=== PATIENT | male | born 1990 | race Caucasian/White ===

== ENCOUNTER 2017-08-29 18:48 | Emergency (ER) | payer MEDICAID ==
[2017-08-29] MEDS: FAMOTIDINE 20 MG INJ IV (21:28)
[2017-08-29] MEDS: ONDANSETRON 4 MG INJ IV (21:28)
[2017-08-29] MEDS: morphine 4 MG/ML VIAL IV (21:28)
[2017-08-29] MEDS: SOD CHLORIDE 0.9% 1,000 ML IV (21:29)
[2017-08-29 21:39] LABS: ADD MAN DIFF? NO
[2017-08-29 21:41] LABS: WHITE BLOOD COUNT 6.7 10^3/ul (4.8-10.8)
[2017-08-29 21:41] LABS: BASOPHILS % 0.6 % (0.0-2.0); EOSINOPHILS # 0.1 10^3/ul (0.0-0.5); EOSINOPHILS % 0.9 % (0.0-7.0); HEMATOCRIT 41.3 % (42.0-52.0); HEMOGLOBIN 14.8 g/dl (14.0-18.0); LYMPHOCYTES # 3.1 10^3/ul (0.8-2.9); LYMPHOCYTES % 45.6 % (15.0-51.0); MEAN CORPUSCULAR HEMOGLOBIN 30.3 pg (29.0-33.0); MEAN CORPUSCULAR HGB CONC 35.8 g/dl (32.0-37.0); MEAN CORPUSCULAR VOLUME 84.6 fl (82.0-101.0); MONOCYTE # 0.5 10^3/ul (0.3-0.9); MONOCYTES % 7.3 % (0.0-11.0); NEUTROPHIL # 3.1 10^3/ul (1.6-7.5); NEUTROPHILS % 45.5 % (39.0-77.0); PLATELET COUNT 220 10^3/UL (140-415); RED BLOOD COUNT 4.88 10^6/ul (4.70-6.10); RED CELL DISTRIBUTION WIDTH 11.9 % (11.5-14.5)
[2017-08-29 21:59] LABS: ALANINE AMINOTRANSFERASE 25 IU/L (13-69); ALBUMIN 5.2 g/dl (3.3-4.9); ALBUMIN/GLOBULIN RATIO 1.67; ALKALINE PHOSPHATASE 68 IU/L (42-121); ANION GAP 19 (8-16); ASPARTATE AMINO TRANSFERASE 25 IU/L (15-46); BILIRUBIN,INDIRECT 0.1 mg/dl (0-1.1); BILIRUBIN,TOTAL 0.1 mg/dl (0.2-1.3); BLOOD UREA NITROGEN 9 mg/dl (7-20); CALCIUM 9.8 mg/dl (8.4-10.2); CARBON DIOXIDE 29 mmol/L (21-31); CHLORIDE 102 mmol/L (97-110); GLUCOSE 95 mg/dl (70-220); LIPASE 64 U/L (23-300); POTASSIUM 3.7 mmol/L (3.5-5.1); SODIUM 146 mmol/L (135-144); TOTAL PROTEIN 8.3 g/dl (6.1-8.1)
[2017-08-29 22:21] LABS: TROPONIN-I < 0.012 ng/ml (0.00-0.12)
[2017-08-30 00:03] LABS: UR RBC 1 /HPF (0-5); UR WBC 0 /HPF (0-5)
[2017-08-30 00:07] LABS: ADD UMIC NO; UR ASCORBIC ACID NEGATIVE (NEGATIVE); UR BILIRUBIN (Dip) NEGATIVE (NEGATIVE); UR BLOOD (Dip) NEGATIVE (NEGATIVE); UR CLARITY CLEAR (CLEAR); UR COLOR STRAW (YELLOW); UR GLUCOSE (Dip) NEGATIVE (NEGATIVE); UR KETONES (Dip) NEGATIVE (NEGATIVE); UR LEUKOCYTE ESTERASE (Dip) NEGATIVE Leu/ul (NEGATIVE); UR NITRITE (Dip) NEGATIVE (NEGATIVE); UR SPECIFIC GRAVITY (Dip) 1.009 (1.003-1.030); UR TOTAL PROTEIN (Dip) NEGATIVE (NEGATIVE); UR UROBILINOGEN (Dip) NEGATIVE (NEGATIVE)
[2017-08-30] MEDS: LORATADINE 10 MG TAB PO (00:09)
== END 2017-08-30 00:11 | disposition home or self-care (01) ==
LOC: FTE 08-30 00:11
DX: R10.13 Epigastric pain (principal)
CPT/HCPCS: 36415; 74176; 76705; 80053; 81003; 83690; 84484; 85025; 96374; 96375; 99285-25